=== PATIENT | male | born 1945 | race Caucasian/White ===

== ENCOUNTER 2021-07-16 10:59 | Inpatient (IN) | payer OTHER, MEDICARE ==
[~2021-07-16] VITALS: Ht 172.7 cm; Wt 106.1 kg
--- NOTE | ~2021-07-16 | EMS ---
[facility] [address] [place] [address] EMS Patient Care Report Name: NORBERTO ANAYA Room #: PRE ER M.R.#: [id number] Admission: Attend Phys: Discharge: Date of : 47 Report #: [id number] THIS REPORT FOR: //name// Report Transmitted: 07/16/2021 11:33 EMS Care Summary Standard, [place]/[facility] Incident [id number] @ 07/16/2021 10:29 Incident Location [facility] [place] [address] Patient NORBERTO ANAYA Male, 75 Years 1945 Patient Address [address] [place] [address] Patient History None Reported, Patient Medications None Reported, Chief Complaint SOB/hypoxia Disposition Transported [place] Reason Breathing Problem Transported To [facility] Narrative pt found in Urgent care bed, laboring to breathe. staff states pt drove self to clinic and came in very SOB. they got a RA 02 sat of 79% on pt. pt placed on NC 10L by staff. pt reports sudden onset w/o CP. he has had increased swelling in his legs and feet recently. pt is covid vaccinated and afebrile. on our arrival, Pumper 36 is putting pt on NRB. [address] seg elev. pt to cot and becomes more SOB in unit. transport emergency to pt [facility] [address] [place] [address] EMS Patient Care Report Name: NORBERTO ANAYA Room #: [facility] M.R.#: [id number] Admission: Attend Phys: Discharge: Date of : 47 Report #: [id number] choice [facility]. pt anxious during transport. pt 02 sat remains 94% on NRB. report to staff Rm 12. Initial Vitals @11:04P: 113,R: 30,BP: 160/100,Pain: 0/10,SpO2: 94, @10:43P: 113,CO: 0,SpO2: 96, @PTAP: 116,R: 28,BP: 163/83,Pain: 0/10,GCS: 15,Glucose: 169,SpO2: 94,Revised Trauma: 12, Assessments @10:39MENTAL:No Abnormalities,SKIN:Diaphoresis,HEENT:Head/Face: No Abnormalities,LUNG SOUNDS:ABDOMEN:PELVIS//GI:EXTREMITIES:PULSE:Radial: 2+ Normal,NEURO:No Abnormalities, Impression Shortness of breath Procedures @10:43 12-Lead ECG Response: Unchanged @10:39 ALS Assessment Response: Unchanged @10:47 Stretcher Response: Unchanged @PTA3-Lead ECG Response: Unchanged @PTAOxygen FlowRate: 15 Device: Non Re-breather Mask (NRB) Response: ImprovedSucceeded @10:45 IV Therapy - Saline Lock 10cc (20 ga) Site: Hand-Left Response: UnchangedSucceeded Timeline FUR SEWER,3-Lead ECG,Response: Unchanged FUR SEWER,Oxygen FlowRate: 15 Device: Non Re-breather Mask (NRB) Response: ImprovedSucceeded, FUR SEWER,BP: 163/83 M,PULSE: 116,RR: 28 R,SPO2: 94 Ox,ETCO2: ,B,PAIN: 0,GCS: 15, 10:27,Call Received 10:27,Dispatch Notified 10:29,Dispatched 10:30,En Route 10:38,On Scene 10:39,At Patient 10:39,ALS Assessment,Response: Unchanged 10:43,12-Lead ECG,Response: Unchanged 10:43,BP: / M,PULSE: 113,RR: R,SPO2: 96 Ox,ETCO2: ,BG: ,PAIN: ,GCS: , 10:45,IV Therapy - Saline Lock 10cc 20 ga Site: Hand-Left,Response: UnchangedSucceeded, 10:47,Stretcher,Response: Unchanged [facility] [address] [address] EMS Patient Care Report Name: NORBERTO ANAYA Room #: PRE M.R.#: [id number] Admission: Attend Phys: Discharge: Date of : 47 Report #: [id number] 10:51,Depart Scene 10:57,At Destination 11:04,BP: 160/100 M,PULSE: 113,RR: 30 R,SPO2: 94 Ox,ETCO2: ,BG: ,PAIN: 0,GCS: , 11:15,Call Closed Disclaimer v1.1 Copyright 2020 [employer] This EMS Care Summary contains data elements from the applicable legal record (which may be displayed differently). It is designed to provide pertinent information for the following purposes: continuity of care, clinical quality, and state data reporting. The complete legal record is available to ED staff and administrators of the receiving hospital in ES's Patient Tracker. All data is provided "as is."
[2021-07-16 10:59] VITALS: BP 180/98
[2021-07-16 11:49] LABS: ABSOLUTE NEUTROPHILS 6.4 thou/uL (1.4-8.2); BASOPHILS 0.6 % (0.0-2.0); EOSINOPHILS 0.9 % (0.0-3.0); HEMATOCRIT 42.7 % (42.0-52.0); HEMOGLOBIN 14.1 gm/dL (14.0-18.0); LYMPHOCYTES 13.4 % (24.0-44.0); MCH 32.7 pg (26.0-34.0); MCHC 32.9 g/dL (28.0-37.0); MCV 99.3 fL (80.0-100.0); MONOCYTES 6.6 % (1.0-8.0); PLATELET COUNT 321 thou/uL (150-400); POLYS 78.5 % (36.0-66.0); RDW 14.4 % (10.5-14.5); WBC 8.2 thou/uL (4.0-11.0)
[2021-07-16 12:03] LABS: CALCIUM 9.3 mg/dL (8.5-10.1); CREATININE 1.7 mg/dL (0.7-1.3); POTASSIUM 3.8 mmol/L (3.5-5.1)
[2021-07-16 12:12] LABS: ALBUMIN 3.7 g/dL (3.4-5.0); TOTAL BILIRUBIN 1.1 mg/dL (0.2-1.0); TOTAL PROTEIN 7.5 g/dL (6.4-8.2)
[2021-07-16 12:36] LABS: HCO3 20.3 mmol/L (22.0-26.0); PCO2 34.7 mmHg (35.0-45.0); PO2 108.1 mmHg (80.0-100.0); pH 7.384 (7.360-7.450); sO2 97.9 % (92.0-98.0)
--- NOTE | 2021-07-16 13:25 | EKG ---
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 : 1945 Requested By: Genevieve Mason Order Number: [id number] MD: Damion Stark Measurements Intervals [place] Rate: 120 P: 32 OK: 155 QRS: 88 QRSD: 86 T: 267 QT: 303 QTc: 429 Interpretive Statements Sinus tachycardia Atrial premature complex Probable left atrial enlargement Borderline right axis deviation Left ventricular hypertrophy Repol abnrm suggests ischemia, diffuse leads No previous ECG available for comparison Electronically Signed On 07-16-2021 13:25:19 VEGETABLE CUTTER by Damion Stark [email or web address] <ELECTRONICALLY SIGNED> By: Damion Stark MD, [facility] 07/16/21 1325 1106 1106 Damion Stark MD, FACC /EPI
[2021-07-16 16:40] LABS: URINE BILIRUBIN NEGATIVE (Negative); URINE BLOOD NEGATIVE (Negative); URINE CLARITY CLEAR; URINE COLOR YELLOW; URINE GLUCOSE-RANDOM* NEGATIVE (Negative); URINE KETONES TRACE (Negative); URINE LEUKOCYTES-REFLEX NEGATIVE (Negative); URINE NITRITE-REFLEX NEGATIVE (Negative); URINE PROTEIN (DIPSTICK) NEGATIVE (Negative); URINE UROBILINOGEN 0.2 E.U./dl (0.2-1.0)
--- NOTE | 2021-07-16 17:30 | EKG ---
[address] [place] [address] ELECTROCARDIOGRAM REPORT Name: NORBERTO ANAYA Room #: 170-12 ADM IN M.R.#: [id number] Admission: 07/16/21 Attend Phys: Prieto العلي MD Discharge: Date of : 47 Report #: [id number] [facility] ED Test Date: 2021-07-16 Test Time: 14:07:26 Pat Name: NORBERTO ANAYA Department: Room: 170 Gender: M [place]er: [id number] : 1945 Requested By: Genevieve Mason Order Number: [id number] MD: Yrn Stone Measurements Intervals [place] Rate: 106 P: 20 DE: 32 QRS: 74 QRSD: 100 T: 185 QT: 361 QTc: 480 Interpretive Statements Sinus tachycardia Ventricular premature complex Left ventricular hypertrophy Borderline prolonged QT interval Compared to ECG 07/16/2021 11:06:51 Ventricular premature complex(es) now present Electronically Signed On 07-16-2021 17:30:07 ROTARY DRILLER by Yrn Stone [email or web address] <ELECTRONICALLY SIGNED> By: Yrn Stone MD, [facility] 07/16/21 4860 06 06 Yrn Stone MD, [facility] /EPI
[2021-07-16 17:49] VITALS: BP 1325/66
[2021-07-16 20:02] VITALS: BP 147/63
[2021-07-17] VITALS: BP 130/52
[2021-07-17 02:06] LABS: GLYCOHEMOGLOBIN (HGB A1C) 6.5 % (4.8-5.6)
[2021-07-17 04:37] VITALS: BP 136/53
--- NOTE | 2021-07-17 05:01 | NUR ---
Assumed patient care at 1900. Pt is alert and oriented. No sign of distress noted in pt. Pt is on 3L NC. Fall precaution in place. Vital signs stable. Scheduled meds administered to pt. No acute event through the night. Continue to monitor. No further needs at this time.
[2021-07-17 05:48] LABS: BASOPHILS 0.8 % (0.0-2.0); HEMATOCRIT 37.5 % (42.0-52.0); HEMOGLOBIN 12.4 gm/dL (14.0-18.0); MCH 32.7 pg (26.0-34.0); MCHC 33.1 g/dL (28.0-37.0); MCV 98.9 fL (80.0-100.0); PLATELET COUNT 251 thou/uL (150-400); POLYS 68.2 % (36.0-66.0); RDW 13.8 % (10.5-14.5); WBC 8.8 thou/uL (4.0-11.0)
[2021-07-17 06:03] LABS: CALCIUM 8.8 mg/dL (8.5-10.1); CREATININE 1.4 mg/dL (0.7-1.3); MAGNESIUM 2.2 mg/dL (1.8-2.4); POTASSIUM 3.9 mmol/L (3.5-5.1)
[2021-07-17 07:00] VITALS: BP 130/74
--- NOTE | 2021-07-17 07:59 | EKG ---
[address] [employer] [place] [address] ELECTROCARDIOGRAM REPORT Name: NORBERTO ANAYA Room #: 219-P ADM IN M.R.#: [id number] Admission: 07/16/21 Attend Phys: Prieto العلي MD Discharge: Date of : 47 Report #: [id number] [facility] Test Date: 2021-07-17 Test Time: 07:31:38 Pat Name: NORBERTO ANAYA Department: Room: 219 P Gender: M Date Night Caregiver: KAREL : 1945 Requested By: Yrn Stone Order Number: [id number] MD: Yrn Stone Measurements Intervals [place] Rate: 100 P: 29 IA: 164 QRS: 53 QRSD: 84 T: 191 QT: 350 QTc: 452 Interpretive Statements Sinus tachycardia LVH with repolarization abnormality Compared to ECG 07/16/2021 14:07:26 Ventricular premature complex(es) no longer present Electronically Signed On 07-17-2021 7:59:31 COUNTER HOP by Yrn Stone [email or web address] <ELECTRONICALLY SIGNED> By: Yrn Stone MD, [facility] 07/17/21 0759 0 0 Yrn Stone MD, [facility] /EPI
[2021-07-17 08:22] LABS: CHOLESTEROL 183 mg/dL (<200); HDL CHOLESTEROL 52 mg/dL (>40); LDL CHOLESTEROL 108 mg/dL (<100); TC:HDL 3.5 Ratio (Not establshd); TRIGLYCERIDE 115 mg/dL (<150); VLDL 23 mg/dL (<40)
[2021-07-17 12:00] VITALS: BP 119/65
[2021-07-17 16:00] VITALS: BP 131/57
--- NOTE | 2021-07-17 16:00 | 2DMMODE ---
[facility] [address] [place] [address] 2 D/M-MODE ECHOCARDIOGRAM Name: NORBERTO ANAYA Room #: 219-P ADM IN M.R.#: [id number] Admission: 07/16/21 Attend Phys: Prieto العلي MD Discharge: Date of : 47 Report #: [id number] THIS REPORT FOR: cc: NO FAMILY PHYSICIAN or PCP NO FAMILY PHYSICIAN or PCP Yrn Stone MD [facility] ~ APPROVED REPORT Study performed: 07/17/2021 15:07:10 EXAM: Comprehensive 2D, Doppler, and color-flow Echocardiogram Patient Location: Bedside Room #: 219 Status: routine BSA: 2.18 HR: 90 bpm BP: 119/65 mmHg Rhythm: NSR Other Information Study Quality: Good Indications Congestive Heart Failure 2D Dimensions IVSd: 8.46 (7-11mm) LVOT Diam: 20.01 (18-24mm) LVDd: 69.69 mm PWd: 8.06 (7-11mm) Ascending Ao: 31.58 (22-36mm) LVDs: 63.17 (25-40mm) Left Atrium: 47.09 (27-40mm) Aortic Root: 27.33 mm IVC: 18.00 mm Volumes Left Atrial Volume (Systole) Single Plane 4CH: 62.73 mL Single Plane 2CH: 54.65 mL LA ESV Index: 29.00 mL/m2 Aortic Valve AoV Peak Benji.: 1.35 m/s AO Peak Gr.: 7.28 mmHg LVOT Max P.11 mmHg LVOT Max V: 1.13 m/s HUBERT Vmax: 2.63 cm2 [facility] [address] [place] [address] 2 D/M-MODE ECHOCARDIOGRAM Name: NORBERTO ANAYA Room #: 219-P [facility] IN ..#: [id number] Admission: 07/16/21 Attend Phys: Philomena Baugh Discharge: Date of : 47 Report #: [id number] Mitral Valve E/A Ratio: 2.5 MV Decel. Time: 114.92 ms MV E Max Benji.: 0.99 m/s MV A Benji.: 0.39 m/s MV PHT: 33.33 ms IVRT: 78.43 ms Pulmonary Valve PV Peak Benji.: 0.75 m/s PV Peak Gr.: 2.24 mmHg Left Ventricle Left ventricle is dilated. There is global hypokinesis of the left ventricle. There is normal left ventricular wall thickness. Left ventricular ejection fraction is severely decreased. LVEF 25%. Severe diastolic dysfunction Right Ventricle The right ventricle is normal size. The right ventricular systolic function is normal. Atria The left atrium size is normal. The right atrium size is normal. Aortic Valve The aortic valve is mildly calcified. No aortic regurgitation is present. There is no aortic valvular stenosis. Mitral Valve The mitral valve is normal in structure. Moderate mitral regurgitation. No evidence of mitral valve stenosis. Tricuspid Valve The tricuspid valve is normal in structure. There is no tricuspid valve regurgitation noted. Pulmonic Valve The pulmonary valve is normal in structure. There is no pulmonic valvular regurgitation. Great Vessels The aortic root is normal in size. IVC is normal in size and collapses >50% with inspiration. Pericardium [facility] [address] [place] [address] 2 D/M-MODE ECHOCARDIOGRAM Name: NORBERTO ANAYA Room #: 219-P [facility] IN ..#: [id number] Admission: 07/16/21 Attend Phys: Philomena Baugh Discharge: Date of : 47 Report #: [id number] Trace anterior pericardial effusion. <Conclusion> Left ventricular ejection fraction is severely decreased. There is global hypokinesis of the left ventricle. LVEF 25%. Severe diastolic dysfunction The aortic valve is mildly calcified. No aortic regurgitation or stenosis The mitral valve is normal in structure. Moderate mitral regurgitation. Pulmonary artery pressure could not be reliably ascertained Trace anterior pericardial effusion. <ELECTRONICALLY SIGNED> By: Yrn Stone MD, [facility] 07/17/21 1600 1600 1600 Yrn Stone MD, FACC /INF
[2021-07-17 19:37] VITALS: BP 88/48
[2021-07-18 05:41] VITALS: BP 123/56
[2021-07-18 05:42] LABS: CALCIUM 8.8 mg/dL (8.5-10.1); CREATININE 1.3 mg/dL (0.7-1.3); POTASSIUM 3.6 mmol/L (3.5-5.1)
[2021-07-18 08:15] VITALS: BP 110/53
--- NOTE | 2021-07-18 10:34 | NUR ---
Met with patient who is A/Ox4. Patient resides in independent home with all needs on one level. 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 Patient no hx of HH/rehab. He does not use any DME. 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 Patient currently on oxygen but does not use at home. 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 Patient reports no PCP as has not been ill. Gave resources for PCP information. Patient on oxygen currently and does not use at home. Casemgt following
[2021-07-18 11:35] VITALS: BP 100/57
[2021-07-18 16:10] VITALS: BP 92/51
[2021-07-18 17:50] VITALS: BP 101/76
--- NOTE | 2021-07-18 18:23 | NUR ---
PATIENT HAS BEEN UP AD DARWIN IN ROOM ALL DAY. UA COLLECTED PER ORDER. ACHS COMPLETED, NO INSULIN REQUIRED TODAY. RENAL US COMPLETED, UNREMARKABLE. REMAINS ON 2LNC. COMPLETED EXERCISE OX WITH RT FOR POSSIBLE HOME O2. PATIENT COULD POSSIBLY DC HOME TOMORROW.
[2021-07-18 20:26] VITALS: BP 94/61
[2021-07-19 04:55] LABS: CALCIUM 8.7 mg/dL (8.5-10.1); CREATININE 1.5 mg/dL (0.7-1.3); POTASSIUM 3.9 mmol/L (3.5-5.1)
--- NOTE | 2021-07-19 06:23 | NUR ---
PT HAD 26 BTS OF V-TACH, DR. SHARMA WAS NOTIFED,. PT WAS ASYMPTOMATIC, SITTING UP IN THE CHAIR WATCHING TV. PT DENIED CP, SOB AND N/V. VSS. A REPEAT BMP WAS ORDERED PER DR. SHARMA. SR PER MONITOR.
[2021-07-19 06:24] VITALS: BP 114/66
[2021-07-19 06:46] LABS: CALCIUM 8.8 mg/dL (8.5-10.1); CREATININE 1.4 mg/dL (0.7-1.3); POTASSIUM 3.7 mmol/L (3.5-5.1)
[2021-07-19 08:00] VITALS: BP 116/89
[2021-07-19] MEDS ORDERED: TORSEMIDE20 MG PO (09:16)
[2021-07-19] MEDS ORDERED: BAYER CHEWABLE81 MG PO (09:16)
[2021-07-19] MEDS ORDERED: LIPITOR40 MG PO (09:16)
[2021-07-19] MEDS ORDERED: COZAAR 25 MG TA25 M2 PO (09:16)
[2021-07-19] MEDS ORDERED: CARVEDILOL3.125 MG PO (09:16)
[2021-07-19] MEDS ORDERED: SPIRONOLACTONE25 M1 PO (09:16)
[2021-07-19 11:37] VITALS: BP 102/60
[2021-07-19 13:00] LABS: PROT/CREAT RATIO 0.1; URINE CREATININE-RANDOM* 154.7 mg/dL; URINE PROTEIN-RANDOM* 11.4 mg/dL (<11.9)
--- NOTE | 2021-07-19 14:57 | NUR ---
Spoke with Tani VELÁSQUEZ, liason met with patient and he does not feel he needs home health at ia. He plans to f/u and inquire himself into a PCP.
[2021-07-19 15:45] VITALS: BP 97/60
[2021-07-19 17:05] VITALS: BP 102/67
[2021-07-19 17:31] LABS: MAGNESIUM 2.2 mg/dL (1.8-2.4)
[2021-07-19 20:15] VITALS: BP 101/60
[2021-07-20 04:45] VITALS: BP 118/66
[2021-07-20 08:01] VITALS: BP 111/71
[2021-07-20 11:41] VITALS: BP 100/55
[2021-07-20] MEDS ORDERED: COREG6.25 MG PO (12:49)
[2021-07-20] MEDS ORDERED: JANUVIA25 MG PO (12:49)
[2021-07-20] MEDS ORDERED: OTHER MISCELL (12:52)
[2021-07-20 13:35] VITALS: BP 100/55
--- NOTE | 2021-07-20 14:37 | NUR ---
PATIENT DISCHARGED HOME, NO QUESTIONS OR CONCERNS AFTER EDUCATION AT BEDSIDE. IV AND TELE REMOVED. TAKEN OUT WITH WHEELCHAIR BY STAFF TO PRIVATE VEHICLE WHERE A FRIEND WAITS.
== END 2021-07-20 17:35 | disposition home or self-care (01) | DRG 291 ==
LOC: ER 10:59 → 2N 14:41 → EROBS 14:41 → 2N 18:28
PROVIDERS: Emergency Medicine; Internal Medicine; Internal Medicine Nephrology; Nurse Practitioner; ADMIT Hospitalist; ATTEND Hospitalist
DX: I13.0 Hypertensive heart and chronic kidney disease with heart failure and stage 1 through stage 4 chronic kidney disease, or unspecified chronic kidney disease (principal); I50.31 Acute diastolic (congestive) heart failure; J96.01 Acute respiratory failure with hypoxia; J96.02 Acute respiratory failure with hypercapnia; N17.9 Acute kidney failure, unspecified; I47.1 Supraventricular tachycardia; I42.9 Cardiomyopathy, unspecified; R77.8 Other specified abnormalities of plasma proteins; Z20.822 Contact with and (suspected) exposure to COVID-19; E66.9 Obesity, unspecified; E11.65 Type 2 diabetes mellitus with hyperglycemia; E11.22 Type 2 diabetes mellitus with diabetic chronic kidney disease; E87.70 Fluid overload, unspecified; E78.5 Hyperlipidemia, unspecified; N18.9 Chronic kidney disease, unspecified; Z88.1 Allergy status to other antibiotic agents; Z98.49 Cataract extraction status, unspecified eye; Z79.82 Long term (current) use of aspirin; Z79.899 Other long term (current) drug therapy; Z68.36 Body mass index [BMI] 36.0-36.9, adult
CPT/HCPCS: 10081

== ENCOUNTER → 2021-08-19 | Outpatient (CLI) | payer OTHER, MEDICARE ==
[~2021-08-19] MED LIST: BAYER CHEWABLE81 MG PO; CARVEDILOL3.125 MG PO; COREG6.25 MG PO; COZAAR 25 MG TA25 M2 PO; JANUVIA25 MG PO; LIPITOR40 MG PO; OTHER MISCELL; SPIRONOLACTONE25 M1 PO; TORSEMIDE20 MG PO
== END ==
LOC: SJCVC 13:23
PROVIDERS: ATTEND Internal Medicine
DX: R94.31 Abnormal electrocardiogram [ECG] [EKG] (principal); I42.9 Cardiomyopathy, unspecified; I11.0 Hypertensive heart disease with heart failure; I50.22 Chronic systolic (congestive) heart failure; E78.2 Mixed hyperlipidemia; E11.9 Type 2 diabetes mellitus without complications; N17.9 Acute kidney failure, unspecified; J96.01 Acute respiratory failure with hypoxia; Z88.1 Allergy status to other antibiotic agents; Z79.82 Long term (current) use of aspirin; Z79.899 Other long term (current) drug therapy; Z72.89 Other problems related to lifestyle

== ENCOUNTER → 2021-09-09 | Outpatient (CLI) | payer OTHER, MEDICARE ==
[~2021-09-09] VITALS: Ht 162.6 cm; Wt 95.3 kg
[~2021-09-09] MED LIST changes: +COREG25 M1 PO
[2021-09-09 07:05] VITALS: BP 153/84
--- NOTE | 2021-09-09 10:45 | NUR ---
PT RESTING COMFORTABLE A/OX3. PT HAS NO C/O OR REQEUST
--- NOTE | 2021-09-09 12:39 | CATHLAB ---
[facility] [place] [address] INVASIVE PROCEDURE REPORT Name: NORBERTO ANAYA Room #: REG AMANDA Lafleur#: [id number] Admission: 09/09/21 Attend Phys: Yrn Stone MD, Discharge: Date of : 47 Report #: [id number] THIS REPORT FOR: cc: NO FAMILY PHYSICIAN or PCP NO FAMILY PHYSICIAN or PCP Yrn Stone MD [facility] ~ ADDENDUM APPROVED REPORT Study performed: 09/09/2021 07:41:39 Patient Details Patient Status: Out-Patient Room #: The patient is a 75 year-old male Event Personnel Yrn Stone Deputy Sheriff Bailiff, Chantale Recinos, CHECKER STOCKER Monitor, John Valencia RN RN, Zainab Foster Procedures Performed Art Access - R femoral artery* Left Heart Cath w/or w/o Coronaries [id number] [facility] [address] Initial Mod Sed Same Phys/QHP Gr5y [id number] 36389 Mod Sed Same Phys/QHP Ea 852309 Hemostasis w/ Mynx Indication Dyspnea, Positive stress test Procedure Narrative The patient was brought electively to the Cardiac Catheterization Laboratory and was prepped and draped in a sterile manner. The Right Groin^ was infiltrated with 1% Lidocaine subcutaneous anesthesia. A PINNACLE 6FR Sheath #[id number] sheath was inserted into the RFA^. Coronary angiography was performed using coronary diagnostic catheters. The right coronary system was accessed and visualized with a JR4 catheter. The left coronary system was accessed and visualized with a JL4 catheter. The left ventricle was accessed and visualized with a ANGLED PIGTAIL catheter. Left ventricular/Aortic Valve gradient assessed via catheter pullback. Left ventriculogram was performed in 30 degree projection. Closure device was deployed with a 6 Fr MYNXGRIP 6/7F #[id number]. The patient tolerated the procedure well and there were no complications associated with the procedure. There was no hematoma. Intraoperative Conscious Sedation [facility] [address] [place] [address] INVASIVE PROCEDURE REPORT Name: NORBERTO ANAYA [id number] Admission: 09/09/21 Attend Phys: Yrn Stone, Discharge: Date of : 47 Report #: [id number] Sedation start time: 08:24 Case end Time: 08:49 Fentanyl 50 mcg Versed 2 mg Fluoro Time: 1.90 minutes Dose: DAP 6879.70 cGycm2 872 mGy Contrast Type and Amount: Omnipaque 85 ml Coronary Angiography The patient's coronary anatomy is right dominant. Diagnostic Cath Left Main Normal left main LAD Sequential 95% proximal than mid LAD stenoses The LAD was large in caliber and exhibited mild plaquing beyond these high-grade stenoses Diagonal 1 Small first diagonal branch with 50-60% proximal stenosis Diagonal 2 Small second diagonal branch, normal Circumflex Large but nondominant circumflex. 80% proximal circumflex stenosis before the first marginal branch OM1 Occluded first marginal branch with left to left collateralization to a trifurcating marginal branch Right Coronary Occluded right coronary with [id number] collateralization Left Ventriculography The left ventricle is mild to moderately dilated in size with abnormal contractility. The left ventricular ejection fraction is estimated to be 25-30%. Left ventricular wall motion abnormalities are present. There is no mitral insufficiency. Hemodynamics The aortic pressure is 160/47 mmHg with a mean of 82 mmHg. The left ventricular pressure is 166/11 mmHg with a mean of mmHg. The left ventricular end diastolic pressure is 45 mmHg. Conclusion 1. Severe global left ventricular dysfunction. EF 25-30% 2. Normal left main 3. Severe multivessel coronary disease. Right coronary dominant circulation <ELECTRONICALLY SIGNED> By: Yrn Stone MD, FACC 09/09/21 1239 1239 1239 Yrn Stone MD, FACC /INF
[2021-09-09 12:41] LABS: URINE BILIRUBIN NEGATIVE (Negative); URINE BLOOD NEGATIVE (Negative); URINE CLARITY CLEAR; URINE COLOR YELLOW; URINE GLUCOSE-RANDOM* NEGATIVE (Negative); URINE KETONES NEGATIVE (Negative); URINE LEUKOCYTES-REFLEX NEGATIVE (Negative); URINE NITRITE-REFLEX NEGATIVE (Negative); URINE PROTEIN (DIPSTICK) NEGATIVE (Negative); URINE SPECIFIC GRAVITY <= 1.005 (1.005-1.035); URINE UROBILINOGEN 0.2 E.U./dl (0.2-1.0)
[2021-09-09 14:42] LABS: ABSOLUTE NEUTROPHILS 5.5 thou/uL (1.4-8.2); BASOPHILS 0.6 % (0.0-2.0); EOSINOPHILS 1.2 % (0.0-3.0); HEMATOCRIT 43.4 % (42.0-52.0); HEMOGLOBIN 14.6 gm/dL (14.0-18.0); MCH 32.2 pg (26.0-34.0); MCHC 33.6 g/dL (28.0-37.0); MCV 95.7 fL (80.0-100.0); PLATELET COUNT 275 thou/uL (150-400); POLYS 68.2 % (36.0-66.0); RBC 4.54 mil/uL (4.50-6.00); RDW 14.2 % (10.5-14.5); WBC 8.1 thou/uL (4.0-11.0)
[2021-09-09 14:48] LABS: CALCIUM 9.2 mg/dL (8.5-10.1); CREATININE 1.5 mg/dL (0.7-1.3); POTASSIUM 3.8 mmol/L (3.5-5.1)
[2021-09-09 14:54] LABS: ALBUMIN 3.7 g/dL (3.4-5.0); TOTAL PROTEIN 7.3 g/dL (6.4-8.2)
[2021-09-09 15:11] LABS: APTT 24.1 Seconds (24.5-32.8); PROTIME 10.8 Seconds (9.3-11.4)
== END | disposition home or self-care (01) ==
LOC: CATH 06:19
PROVIDERS: Surgery Vascular Surgery; ATTEND Internal Medicine
DX: R94.39 Abnormal result of other cardiovascular function study (principal); I25.10 Atherosclerotic heart disease of native coronary artery without angina pectoris; I65.23 Occlusion and stenosis of bilateral carotid arteries; R06.00 Dyspnea, unspecified; I11.0 Hypertensive heart disease with heart failure; I50.9 Heart failure, unspecified; E11.9 Type 2 diabetes mellitus without complications; I42.9 Cardiomyopathy, unspecified; E78.5 Hyperlipidemia, unspecified; Z98.890 Other specified postprocedural states; Z79.899 Other long term (current) drug therapy; Z82.49 Family history of ischemic heart disease and other diseases of the circulatory system; Z88.0 Allergy status to penicillin; Z95.1 Presence of aortocoronary bypass graft

== ENCOUNTER → 2021-09-30 | Outpatient (CLI) | payer OTHER, MEDICARE | LOC: SJCVC 10:43 | PROVIDERS: ATTEND Internal Medicine | DX: R94.31 Abnormal electrocardiogram [ECG] [EKG] (principal); R00.1 Bradycardia, unspecified; I25.10 Atherosclerotic heart disease of native coronary artery without angina pectoris; I42.9 Cardiomyopathy, unspecified; I13.0 Hypertensive heart and chronic kidney disease with heart failure and stage 1 through stage 4 chronic kidney disease, or unspecified chronic kidney disease; E11.22 Type 2 diabetes mellitus with diabetic chronic kidney disease; N18.2 Chronic kidney disease, stage 2 (mild); I50.22 Chronic systolic (congestive) heart failure; E78.5 Hyperlipidemia, unspecified; I47.1 Supraventricular tachycardia; Z79.82 Long term (current) use of aspirin; Z79.899 Other long term (current) drug therapy; Z88.1 Allergy status to other antibiotic agents ==